=== PATIENT | female | born 1960 | race Caucasian/White ===

== ENCOUNTER → 2019-08-29 13:18 | Outpatient (BNVA) | payer MEDICARE, OTHER, SELFPAY | PROVIDERS: Family Provider Nurse Practitioner Family; PCP Nurse Practitioner Family; Visit Provider Nurse Practitioner | DX: F25.0 Schizoaffective disorder, bipolar type (principal) | CPT/HCPCS: 99213 ==

== ENCOUNTER → 2019-10-17 09:49 | Outpatient (BNVA) | payer MEDICARE, OTHER, SELFPAY | PROVIDERS: Family Provider Nurse Practitioner Family; PCP Nurse Practitioner Family; Visit Provider Internal Medicine Hematology & Oncology | DX: D50.9 Iron deficiency anemia, unspecified (principal) | CPT/HCPCS: 82728; 83540; 83550; 85025 ==

== ENCOUNTER → 2019-10-21 09:57 | Outpatient (BNVA) | payer MEDICARE, OTHER, SELFPAY | PROVIDERS: Family Provider Nurse Practitioner Family; PCP Nurse Practitioner Family; Visit Provider Nurse Practitioner Family | DX: S99.921A Unspecified injury of right foot, initial encounter (principal); W19.XXXA Unspecified fall, initial encounter; M79.671 Pain in right foot | CPT/HCPCS: 73630 ==

== ENCOUNTER 2019-10-22 09:52 | Outpatient (CLI) | payer MEDICARE, OTHER, SELFPAY ==
--- NOTE | 2019-10-23 09:57 | ONC FU_ITS ---
Dr. Armendariz follow up note Patient: Mary Hopper Unit #: [id number]: [id number] Dicatated By: Pearl Armendariz M.D.Date of Visit:Oct 22, 2019 Onc Med Follow-up/Prog Note History of Present Illness: Mrs Mary Hopper, 59-year-old female with long-standing history of iron deficiency anemia. As per patient it was December 2010 when she was told about iron deficiency anemia , at that time she was given blood transfusion and also started on oral iron but never received parenteral iron and she has been taking oral iron since then with mixed response. Since then she has received multiple transfusions approximately 6 times. And the last one was a few weeks ago when her hemoglobin dropped to 7.1 and she received 2 units of packed RBCs with that her hemoglobin gone up to 9.5 on 09/19/2017. Now being treated with parenteral iron for iron deficiency anemia and she received Injectafer 750 mg every week ???2 in September 2017 and in May 2018, with excellent response As per patient, she underwent EGD and colonoscopy in recent past and it was normal. She has history of heartburn indigestion but no history of gastric surgery, no history of abnormal bleeding. No history of jaundice, or urine or stool color changes. No history of night sweats, no weight loss,EGD/colonoscopy done on 11/22/2018 showed 10 cm hiatal hernia, normal stomach and duodenum duodenal biopsy showed no evidence of lymphocytic enteritis or villous atrophy Colonoscopy showed internal hemorrhoids, diverticulosis in sigmoid colon and in ascending colon one 12 mm polyp in the ascending colon removed, it was benign.Capsule endoscopy done on 06/27/2019 showed there were no AVMs or potential bleeding sites seen, no stigmata of recent active bleed Came for follow-up, denies any specific complaints, no nausea vomiting no fever no chills no diarrhea constipation no melena or hematochezia . No palpitation no shortness of breath on exertion. Medications: Amitriptyline HCl 3 (10 mg) Tablet Oral ac pm, Anoro Ellipta 1 (62.5-25 mcg/inh) Aerosol Powder, Breath Activated Inhalation daily, BusPIRone HCl (5 mg) Tablet Oral Take as Directed, BusPIRone HCl 1 (15 mg) Tablet Oral daily, Digoxin 1 (125 mcg) Tablet Oral daily, Omeprazole 1 (20 mg) Capsule Delayed Release Oral b.i.d., SEROquel 2 (400 mg) Tablet Oral at bedtime PRN Allergies: Penicillins and TraMADol HCl. Review of Systems: Constitutional - She has worsening fatigue, ENMT - Occasional sinus congestion/drainage. No mouth sores. No sore throat or difficulty swallowing, Hematologic/Lymphatic - No abnormal bruising or bleeding, Respiratory - No dyspnea on exertion, chest pain, or hemoptysis. Positive for cough, Pt has COPD, Cardiovascular - No anginal chest pain, palpitations, Gastrointestinal - No nausea, vomiting, diarrhea, GI bleeding, or constipation. No change in bowel habits, no heartburn or early satiety, Genitourinary (F) - No hematuria, dysuria, increased frequency, urgency, hesitancy or incontinence, Musculoskeletal - She has some generalized pain at times, Neurologic - Frequent headache and occasional dizziness. No numbness/paresthesias or other focal neurologic symptoms, Psychiatric - Positive for anxiety and depression. Vital Signs: Performed on Oct 22, 2019 11:30 Height - 67.00 in Weight - 195.2 lbs (LOW) BSA - 2.00 sq.m BMI - 30.57 (HIGH) Temperature - 97.9 F (LOW) Pulse - 76 /min Respiration - 22 /min BP - 128/89 mm(hg) O2 Sat - 97 % Pain - 10 Performance Status: 0 - Fully active, able to carry on all predisease activities without restrictions. (ECOG) Physical Examination: ENMT - No oral exudates, ulcers, masses, thrush or mucositis. Oropharynx clear. Tongue normal, Respiratory - Lungs are clear to auscultation without rhonchi or wheezing, Cardiovascular - Regular rate and rhythm of heart, Abdomen - Non-tender, non-distended, Good bowel sounds. No guarding or rebound tenderness. No pulsatile masses, Extremities - no edema. Lab/Imaging: Test performed on Oct 17, 2019 09:49 Ferritin 26 ng/mL % Iron Saturation 27.9 % Iron, Total 80 mcg/dL TIBC 286 mcg/dL WBC 5.7 10^9/L RBC 5.09 10^12/L HGB 14.7 g/dL HCT 43.5 % MCV 85.5 fl MCH 28.9 pg MCHC 33.9 g/dL RDW 15.7 % Platelet Count 351 10^9/L MPV 8.1 fL Neutrophils (Gran) 3.5 10^9/L Lymphocytes 2.1 10^9/L Monocytes 0.1 10^9/L Manual Lymphocytes 36.5 % Manual Monocytes 2.4 % Test performed on Aug 15, 2019 10:14 UIBC 187 ug/dL Neutrophil % 65.3 % Lymphocyte % 30.6 % Monocyte % 4.1 % Test performed on May 13, 2019 14:37 Eosinophils 0.1 10 3/cmm Basophils 0.0 10 3/cmm Eosinophil % 2.4 % Basophils % 0.4 % Impression: Microcytic hypochromic anemia probably due to iron deficiency most likelydue to malabsorption, as EGD and colonoscopy and capsule endoscopy which was done on 06/27/2019 , was normal In addition to that underlying myelodysplasia cannot be ruled out. Generalized weakness and fatigue probably due to anemia Status post Injectafer 750 mg IV weekly ???2 in September 2017 And in May 2018, with excellent response And on 03/12/2019 for ferritin 15, EGD/colonoscopy done on 11/14/2018 showed normal stomach and duodenum and colonoscopy showed internal hemorrhoids and diverticula in sigmoid colon and descending colon, a benign polyp was removed from ascending colon.Endoscopy Done on 06/27/2019 Showed Normal Exam and No AVMs Plan: Discussed with patient regarding her labs white blood count 5.7 hemoglobin 14.7, hematocrit 43.5 platelets 351,000 ferritin 26 iron saturation 27.9 iron 80 TIBC 286 Clinically, patient doing well with no new signs symptoms, follow-up lab shows hemoglobin normal range but iron studies on the low side of normal. Patient is a heavy smoker smoke about 1-1/2-2 packs a day, maybe causing secondary polycythemia thus hemoglobin normal range with mild iron deficiency. We'll continue to monitor her CBC and iron studies and patient was advised to quit smoking and was offered any assistance she may need. She will return to clinic in 2 months with CBC and iron studies and if there is a drop in her hemoglobin and iron stores may consider single dose of Injectafer to avoid secondary polycythemia due to heavy smoking Signed By: Pearl Armendariz M.D. <<Signature on File>>
== END 2019-10-22 09:53 | disposition home or self-care (01) ==
LOC: ONCMED 09:57
PROVIDERS: Family Provider Nurse Practitioner Family; PCP Nurse Practitioner Family; Visit Provider Internal Medicine Hematology & Oncology
DX: D50.9 Iron deficiency anemia, unspecified (principal); D75.1 Secondary polycythemia; K44.9 Diaphragmatic hernia without obstruction or gangrene; K64.8 Other hemorrhoids; K57.30 Diverticulosis of large intestine without perforation or abscess without bleeding; J44.9 Chronic obstructive pulmonary disease, unspecified; F41.8 Other specified anxiety disorders; F17.210 Nicotine dependence, cigarettes, uncomplicated; Z79.899 Other long term (current) drug therapy
CPT/HCPCS: G0463

== ENCOUNTER → 2019-11-28 07:26 | Outpatient (BNVA) | payer MEDICARE, OTHER, SELFPAY | PROVIDERS: Family Provider Nurse Practitioner Family; PCP Nurse Practitioner Family; Visit Provider Nurse Practitioner | DX: F25.0 Schizoaffective disorder, bipolar type (principal) | CPT/HCPCS: 99213 ==

== ENCOUNTER → 2019-12-17 10:00 | Outpatient (BNVA) | payer MEDICARE, OTHER, SELFPAY | PROVIDERS: Family Provider Nurse Practitioner Family; PCP Nurse Practitioner Family; Visit Provider Internal Medicine Hematology & Oncology | DX: D50.9 Iron deficiency anemia, unspecified (principal) | CPT/HCPCS: 82728; 83550; 85025 ==

== ENCOUNTER → 2020-02-26 11:36 | Outpatient (BNVA) | payer MEDICARE, OTHER, SELFPAY | PROVIDERS: Family Provider Nurse Practitioner Family; PCP Nurse Practitioner Family; Visit Provider Internal Medicine Hematology & Oncology | DX: D50.9 Iron deficiency anemia, unspecified (principal) | CPT/HCPCS: 82728; 83550; 85025 ==

== ENCOUNTER 2020-03-05 15:28 | Outpatient (CLI) | payer MEDICARE, OTHER, SELFPAY ==
--- NOTE | 2020-03-12 13:29 | ONC FU_ITS ---
Dr. Armendariz follow up note Patient: Mary Hopper Unit #: [id number]: 1960 Dicatated By: Pearl Armendariz M.D.Date of Visit:Mar 05, 2020 Onc Med Follow-up/Prog Note History of Present Illness: Mrs Mary Hopper, 60 -year-old female with long-standing history of iron deficiency anemia. As per patient it was December 2010 when she was told about iron deficiency anemia , at that time she was given blood transfusion and also started on oral iron but never received parenteral iron and she has been taking oral iron since then with mixed response. Since then she has received multiple transfusions approximately 6 times. And the last one was a few weeks ago when her hemoglobin dropped to 7.1 and she received 2 units of packed RBCs with that her hemoglobin gone up to 9.5 on 09/19/2017. Now being treated with parenteral iron for iron deficiency anemia and she received Injectafer 750 mg every week ???2 in September 2017 and in May 2018, with excellent response As per patient, she underwent EGD and colonoscopy in recent past and it was normal. She has history of heartburn indigestion but no history of gastric surgery, no history of abnormal bleeding. No history of jaundice, or urine or stool color changes. No history of night sweats, no weight loss,EGD/colonoscopy done on 11/22/2018 showed 10 cm hiatal hernia, normal stomach and duodenum duodenal biopsy showed no evidence of lymphocytic enteritis or villous atrophy Colonoscopy showed internal hemorrhoids, diverticulosis in sigmoid colon and in ascending colon one 12 mm polyp in the ascending colon removed, it was benign.Capsule endoscopy done on 06/27/2019 showed there were no AVMs or potential bleeding sites seen, no stigmata of recent active bleed evaluated via telephone Patient denies any specific complaint except generalized weakness and fatigue, dyspnea on exertion although she has underlying COPD and sometimes palpitation on exertion but no melena or hematochezia, no hemoptysis or hematemesis, no jaundice, no chest pain. Patient said she felt much better after last iron infusion at least for few months. Medications: Amitriptyline HCl 3 (10 mg) Tablet Oral ac pm, Anoro Ellipta 1 (62.5-25 mcg/inh) Aerosol Powder, Breath Activated Inhalation daily, BusPIRone HCl (5 mg) Tablet Oral Take as Directed, BusPIRone HCl 1 (15 mg) Tablet Oral daily, Digoxin 1 (125 mcg) Tablet Oral daily, Omeprazole 1 (20 mg) Capsule Delayed Release Oral b.i.d., SEROquel 2 (400 mg) Tablet Oral at bedtime PRN Allergies: Penicillins and TraMADol HCl. Review of Systems: Review of Systems is not available for this patient. Vital Signs: Vitals are not available for this patient. Performance Status: 1 - No physically strenuous activity, but ambulatory and able to carry out light or sedentary work (e.g. office work, light house work). (ECOG) Physical Examination: ENMT - Patient denies any mouth sores, denies any jaundice, Respiratory - Denies any shortness of breath or wheezing, Cardiovascular - Denies any palpitation or tachycardia at rest, Abdomen - Denies any abdominal pain or fullness, Extremities - Denies any lower extremity edema. Lab/Imaging: Test performed on Feb 26, 2020 09:46 Ferritin 14 ng/mL % Iron Saturation 9.2 % Iron, Total 27 mcg/dL TIBC 292 mcg/dL WBC 6.7 10^9/L RBC 5.04 10^12/L HGB 13.2 g/dL HCT 41.5 % MCV 82.3 fl MCH 26.2 pg MCHC 31.9 g/dL RDW 16.7 % Platelet Count 437 10^9/L MPV 7.4 fL Neutrophils (Gran) 4.5 10^9/L Lymphocytes 2.0 10^9/L Monocytes 0.2 10^9/L Manual Lymphocytes 30.3 % Manual Monocytes 3.0 % Impression: Microcytic hypochromic anemia probably due to iron deficiency most likelydue to malabsorption, as EGD and colonoscopy and capsule endoscopy which was done on 06/27/2019 , was normal In addition to that underlying myelodysplasia cannot be ruled out. Generalized weakness and fatigue probably due to anemia Status post Injectafer 750 mg IV weekly ???2 in September 2017 And in May 2018, with excellent response And on 03/12/2019 for ferritin 15, EGD/colonoscopy done on 11/14/2018 showed normal stomach and duodenum and colonoscopy showed internal hemorrhoids and diverticula in sigmoid colon and descending colon, a benign polyp was removed from ascending colon.Endoscopy Done on 06/27/2019 Showed Normal Exam and No AVMs Plan: Discussed with patient Via telephone regarding her labs white blood count 6.7 hemoglobin 13.2 crit 41.5 platelets 437,000. Iron studies shows ferritin down to 14, iron saturation 9.2 iron 27 TIBC 292 Clinically, patient is doing reasonably well now complaining of progressive generalized weakness and fatigue although her follow-up labs showed hemoglobin in the normal range but iron stores shows continuous depletion, ferritin is down to 14 compared to 30 on December 17, 2019 and iron saturation 9.2 compared to 37.5 earlier and iron is 27 compared to 108 in November 2019. As per patient when she was given iron infusion back in February 2019 at that time she felt much better for a few months and then slowly gradually start feeding weak and tired. Keeping in view, regarding her progressive weakness and lab work-up shows progressive iron deficiency and in the past symptom improvement with parenteral iron, will consider Injectafer 750 mg IV x1 now and then repeat labs CBC and iron studies in a month, hopefully, this may improve her symptoms thus quality of life.Time spent on the phone is about 4 minutes Signed By: Pearl Armendariz M.D. <<Signature on File>>
== END 2020-03-05 15:29 | disposition home or self-care (01) ==
LOC: ONCMED 15:32
PROVIDERS: PCP Nurse Practitioner Family; Visit Provider Internal Medicine Hematology & Oncology
DX: D50.9 Iron deficiency anemia, unspecified (principal)

== ENCOUNTER 2020-03-12 13:22 | Outpatient (CLI) | payer MEDICARE, OTHER, SELFPAY ==
[2020-03-12] MEDS: ferric carboxy (IVPB) 750 MG in sodium chloride 0.9% (100 ml) 100 ML 345 MG IV (13:57)
== END 2020-03-12 13:23 | disposition home or self-care (01) ==
LOC: ONCMED 13:25
PROVIDERS: PCP Nurse Practitioner Family; Visit Provider Internal Medicine Hematology & Oncology
DX: D50.9 Iron deficiency anemia, unspecified (principal)
CPT/HCPCS: 96365; J1439

== ENCOUNTER → 2020-03-27 07:47 | Outpatient (BNVA) | payer MEDICARE, OTHER, SELFPAY | PROVIDERS: PCP Nurse Practitioner Family; Visit Provider Nurse Practitioner | DX: F25.0 Schizoaffective disorder, bipolar type (principal); Z79.899 Other long term (current) drug therapy | CPT/HCPCS: 99213 ==

== ENCOUNTER → 2020-04-08 11:04 | Outpatient (BNVA) | payer MEDICARE, OTHER, SELFPAY | PROVIDERS: PCP Nurse Practitioner Family; Visit Provider Internal Medicine Hematology & Oncology | DX: D50.9 Iron deficiency anemia, unspecified (principal); Z79.899 Other long term (current) drug therapy | CPT/HCPCS: 80061; 82728; 83036; 83550; 85025 ==

== ENCOUNTER 2020-04-10 08:59 | Outpatient (CLI) | payer MEDICARE, OTHER, SELFPAY ==
--- NOTE | 2020-04-13 08:48 | ONC FU_ITS ---
Dr. Armendariz follow up note Patient: Mary Hopper Unit #: [id number]: 1960 Dicatated By: Pearl Armendariz M.D.Date of Visit:Apr 10, 2020 Onc Med Follow-up/Prog Note History of Present Illness: Mrs Mary Hopper, 60 -year-old female with long-standing history of iron deficiency anemia. As per patient it was December 2010 when she was told about iron deficiency anemia , at that time she was given blood transfusion and also started on oral iron but never received parenteral iron and she has been taking oral iron since then with mixed response. Since then she has received multiple transfusions approximately 6 times. And the last one was a few weeks ago when her hemoglobin dropped to 7.1 and she received 2 units of packed RBCs with that her hemoglobin gone up to 9.5 on 09/19/2017. Now being treated with parenteral iron for iron deficiency anemia and she received Injectafer 750 mg every week ???2 in September 2017 and in May 2018, with excellent response As per patient, she underwent EGD and colonoscopy in recent past and it was normal. She has history of heartburn indigestion but no history of gastric surgery, no history of abnormal bleeding. No history of jaundice, or urine or stool color changes. No history of night sweats, no weight loss,EGD/colonoscopy done on 11/22/2018 showed 10 cm hiatal hernia, normal stomach and duodenum duodenal biopsy showed no evidence of lymphocytic enteritis or villous atrophy Colonoscopy showed internal hemorrhoids, diverticulosis in sigmoid colon and in ascending colon one 12 mm polyp in the ascending colon removed, it was benign.Capsule endoscopy done on 06/27/2019 showed there were no AVMs or potential bleeding sites seen, no stigmata of recent active bleed Came for follow-up, denies any specific complaints, no fever chills, no nausea or vomiting, no diarrhea constipation, no melena or hematochezia, no palpitation no shortness of breath. Medications: Amitriptyline HCl 3 (10 mg) Tablet Oral ac pm, Anoro Ellipta 1 (62.5-25 mcg/inh) Aerosol Powder, Breath Activated Inhalation daily, BusPIRone HCl (5 mg) Tablet Oral Take as Directed, BusPIRone HCl 1 (15 mg) Tablet Oral daily, Digoxin 1 (125 mcg) Tablet Oral daily, Omeprazole 1 (20 mg) Capsule Delayed Release Oral b.i.d., SEROquel 2 (400 mg) Tablet Oral at bedtime PRN Allergies: Penicillins and TraMADol HCl. Review of Systems: Review of Systems is not available for this patient. Vital Signs: Performed on Apr 10, 2020 09:07 Height - 67.00 in Weight - 207.4 lbs (HIGH) BSA - 2.05 sq.m BMI - 32.48 (HIGH) Temperature - 97.8 F (LOW) Pulse - 105 /min (HIGH) Respiration - 24 /min BP - 119/90 mm(hg) O2 Sat - 96 % Pain - 0 Performance Status: 0 - Fully active, able to carry on all predisease activities without restrictions. (ECOG) Physical Examination: ENMT - No mouth sores, no thrush, no jaundice, Respiratory - Lungs are clear, Cardiovascular - Regular rate and rhythm of heart, Abdomen - Soft, bowel sounds present, Extremities - No visible edema or rash. Lab/Imaging: Test performed on Apr 08, 2020 09:30 Ferritin 211 ng/mL % Iron Saturation 17.5 % Iron, Total 38 mcg/dL TIBC 216 mcg/dL WBC 7.8 10^9/L RBC 5.68 10^12/L HGB 15.4 g/dL HCT 47.8 % MCV 84.1 fl MCH 27.0 pg MCHC 32.2 g/dL RDW 18.7 % Platelet Count 379 10^9/L MPV 7.4 fL Neutrophils (Gran) 5.0 10^9/L Lymphocytes 2.3 10^9/L Monocytes 0.6 10^9/L Manual Lymphocytes 29.2 % Manual Monocytes 7.3 % Impression: Microcytic hypochromic anemia probably due to iron deficiency most likelydue to malabsorption, as EGD and colonoscopy and capsule endoscopy which was done on 06/27/2019 , was normal In addition to that underlying myelodysplasia cannot be ruled out. Generalized weakness and fatigue probably due to anemia Status post Injectafer 750 mg IV weekly ???2 in September 2017 And in May 2018, with excellent response And on 03/12/2019 for ferritin 15, EGD/colonoscopy done on 11/14/2018 showed normal stomach and duodenum and colonoscopy showed internal hemorrhoids and diverticula in sigmoid colon and descending colon, a benign polyp was removed from ascending colon.Endoscopy Done on 06/27/2019 Showed Normal Exam and No AVMs Plan: Discussed with patient regarding her labs white blood count 7.8 hemoglobin 15.4 hematocrit 47.8 platelets 379,000, ferritin 211 compared to 14 on February 25 prior to dose of Injectafer. Iron saturation 17.5% Clinically, patient is doing well, no new signs symptoms, more energetic, tolerated dose of Injectafer given on March 12, 2020 well. Hemoglobin as well as iron stores improved. We will continue to monitor she will return to clinic in 3 months with CBC and iron studies Signed By: Pearl Armendariz M.D. <<Signature on File>>
== END 2020-04-10 09:00 | disposition home or self-care (01) ==
LOC: ONCMED 09:04
PROVIDERS: PCP Nurse Practitioner Family; Visit Provider Internal Medicine Hematology & Oncology
DX: D50.9 Iron deficiency anemia, unspecified (principal); R53.1 Weakness; R53.83 Other fatigue; Z86.010 Personal history of colon polyps; K57.30 Diverticulosis of large intestine without perforation or abscess without bleeding; K64.8 Other hemorrhoids
CPT/HCPCS: G0463

== ENCOUNTER → 2020-06-09 14:00 | Outpatient (BNVA) | payer MEDICARE, OTHER, SELFPAY | PROVIDERS: PCP Nurse Practitioner Family; Visit Provider Nurse Practitioner Family | DX: Z11.59 Encounter for screening for other viral diseases (principal) | CPT/HCPCS: 87635 ==

== ENCOUNTER → 2020-07-08 08:30 | Outpatient (BNVA) | payer MEDICARE, OTHER, SELFPAY | PROVIDERS: PCP Nurse Practitioner Family; Visit Provider Nurse Practitioner Family | DX: D50.9 Iron deficiency anemia, unspecified (principal) | CPT/HCPCS: 82728; 83550; 85025 ==

== ENCOUNTER → 2020-08-03 08:38 | Outpatient (BNVA) | payer MEDICARE, OTHER, SELFPAY | PROVIDERS: PCP Nurse Practitioner Family; Visit Provider Nurse Practitioner | DX: F25.0 Schizoaffective disorder, bipolar type (principal); D50.9 Iron deficiency anemia, unspecified | CPT/HCPCS: 83540; 99213 ==

== ENCOUNTER 2020-08-05 06:52 | Outpatient (CLI) | payer MEDICARE, OTHER, SELFPAY ==
--- NOTE | 2020-08-05 10:39 | ONC FU_ITS ---
Dr. Armendariz follow up note Patient: Mary Hopper Unit #: [id number]: 1960 Dicatated By: Pearl Armendariz M.D.Date of Visit:Aug 05, 2020 Onc Med Follow-up/Prog Note History of Present Illness: Mrs Mary Hopper, 60 -year-old female with long-standing history of iron deficiency anemia. As per patient it was December 2010 when she was told about iron deficiency anemia , at that time she was given blood transfusion and also started on oral iron but never received parenteral iron and she has been taking oral iron since then with mixed response. Since then she has received multiple transfusions approximately 6 times. And the last one was a few weeks ago when her hemoglobin dropped to 7.1 and she received 2 units of packed RBCs with that her hemoglobin gone up to 9.5 on 09/19/2017. s/p parenteral iron for iron deficiency anemia and she received Injectafer 750 mg every week ???2 in September 2017 and in May 2018, with excellent response And again in February 2020, she was given Injectafer 750 mg x 1 As per patient, she underwent EGD and colonoscopy in recent past and it was normal. She has history of heartburn indigestion but no history of gastric surgery, no history of abnormal bleeding. No history of jaundice, or urine or stool color changes. No history of night sweats, no weight loss,EGD/colonoscopy done on 11/22/2018 showed 10 cm hiatal hernia, normal stomach and duodenum duodenal biopsy showed no evidence of lymphocytic enteritis or villous atrophy Colonoscopy showed internal hemorrhoids, diverticulosis in sigmoid colon and in ascending colon one 12 mm polyp in the ascending colon removed, it was benign.Capsule endoscopy done on 06/27/2019 showed there were no AVMs or potential bleeding sites seen, no stigmata of recent active bleed Came for follow-up, denies any specific complaints, no fever chills, no nausea or vomiting, no diarrhea or constipation, no melena or hematochezia, no jaundice, no hemoptysis hematemesis, no shortness of breath or palpitation Medications: Amitriptyline HCl 3 (10 mg) Tablet Oral ac pm, Anoro Ellipta 1 (62.5-25 mcg/inh) Aerosol Powder, Breath Activated Inhalation daily, BusPIRone HCl (5 mg) Tablet Oral Take as Directed, BusPIRone HCl 1 (15 mg) Tablet Oral daily, Digoxin 1 (125 mcg) Tablet Oral daily, Omeprazole 1 (20 mg) Capsule Delayed Release Oral b.i.d., SEROquel 2 (400 mg) Tablet Oral at bedtime PRN Allergies: Penicillins and TraMADol HCl. Review of Systems: Review of Systems is not available for this patient. Vital Signs: Performed on Aug 05, 2020 09:55 Height - 67.00 in Weight - 207.8 lbs (HIGH) BSA - 2.06 sq.m BMI - 32.55 (HIGH) Temperature - 98.6 F Pulse - 95 /min Respiration - 24 /min BP - 123/82 mm(hg) O2 Sat - 94 % (LOW) Pain - 0 Performance Status: 0 - Fully active, able to carry on all predisease activities without restrictions. (ECOG) Physical Examination: ENMT - No mouth sores, no thrush, no jaundice, Respiratory - Lungs are clear to auscultation, Cardiovascular - Regular rate and rhythm of heart, Abdomen - Soft, bowel sounds present, Extremities - No visible edema. Lab/Imaging: Test performed on Jul 13, 2020 11:08 Ferritin 55 ng/mL Test performed on Jul 13, 2020 11:06 % Iron Saturation 15.6 % Iron, Total 41 mcg/dL TIBC 262 mcg/dL WBC 6.2 10^9/L RBC 5.02 10^12/L HGB 14.3 g/dL HCT 43.5 % MCV 86.6 fl MCH 28.5 pg MCHC 32.9 g/dL RDW 14.9 % Platelet Count 388 10^9/L Neutrophils (Gran) 4.0 10^9/L Lymphocytes 1.7 10^9/L Monocytes 0.5 10^9/L Test performed on Apr 08, 2020 09:30 MPV 7.4 fL Manual Lymphocytes 29.2 % Manual Monocytes 7.3 % Impression: Microcytic hypochromic anemia probably due to iron deficiency most likelydue to malabsorption, as EGD and colonoscopy and capsule endoscopy which was done on 06/27/2019 , was normal In addition to that underlying myelodysplasia cannot be ruled out. Generalized weakness and fatigue probably due to anemia Status post Injectafer 750 mg IV weekly ???2 in September 2017 And in May 2018, with excellent response And on 03/12/2019 for ferritin 15, EGD/colonoscopy done on 11/14/2018 showed normal stomach and duodenum and colonoscopy showed internal hemorrhoids and diverticula in sigmoid colon and descending colon, a benign polyp was removed from ascending colon.Endoscopy Done on 06/27/2019 Showed Normal Exam and No AVMs Plan: Discussed with patient regarding her white blood count 6.2 hemoglobin 14.3 hematocrit 43.5 platelets 388,000 MCV 86.6 ferritin 55 iron saturation 15.6 iron 41 TIBC 262 compared to ferritin 211 on April 08, 2020 after Injectafer 750 mg IV x1 Clinically, patient is doing well with no new signs symptoms or follow-up labs shows hemoglobin in normal range and iron stores on the low side of normal range, it shows drop in her ferritin from 211 down to 55 now. But patient denies any evidence of gross bleeding. We will continue to monitor and she will return to clinic in 3 months with CBC and iron studies. Patient prefer telemedicine visit. Signed By: Pearl Armendariz M.D. <<Signature on File>>
== END 2020-08-05 06:53 | disposition home or self-care (01) ==
PROVIDERS: PCP Family Medicine; Visit Provider Internal Medicine Hematology & Oncology
DX: D50.9 Iron deficiency anemia, unspecified (principal); R53.1 Weakness; R53.83 Other fatigue
CPT/HCPCS: G0463

== ENCOUNTER → 2020-10-30 09:16 | Outpatient (BNVA) | payer MEDICARE, OTHER, SELFPAY | PROVIDERS: PCP Family Medicine; Visit Provider Internal Medicine Hematology & Oncology | DX: D50.9 Iron deficiency anemia, unspecified (principal) | CPT/HCPCS: 82728; 83550; 85025 ==

== ENCOUNTER → 2020-11-20 07:49 | Outpatient (BNVA) | payer MEDICARE, OTHER, SELFPAY | PROVIDERS: PCP Family Medicine; Visit Provider Nurse Practitioner | DX: F25.0 Schizoaffective disorder, bipolar type (principal) | CPT/HCPCS: 99214 ==

== ENCOUNTER → 2020-12-11 08:11 | Outpatient (BNVA) | payer MEDICARE, OTHER, SELFPAY | PROVIDERS: PCP Family Medicine; Visit Provider Nurse Practitioner | DX: F25.0 Schizoaffective disorder, bipolar type (principal) | CPT/HCPCS: 99214 ==

== ENCOUNTER → 2020-12-15 15:08 | Outpatient (BNVA) | payer MEDICARE, OTHER, SELFPAY | PROVIDERS: PCP Family Medicine; Visit Provider Family Medicine | DX: E11.65 Type 2 diabetes mellitus with hyperglycemia (principal); K21.9 Gastro-esophageal reflux disease without esophagitis; I10 Essential (primary) hypertension | CPT/HCPCS: 83036 ==

== ENCOUNTER → 2021-02-08 10:10 | Outpatient (BNVA) | payer MEDICARE, OTHER, SELFPAY | PROVIDERS: PCP Family Medicine; Visit Provider Nurse Practitioner Family | DX: M79.642 Pain in left hand (principal) | CPT/HCPCS: 73130 ==

== ENCOUNTER → 2021-02-12 08:47 | Outpatient (BNVA) | payer MEDICARE, SELFPAY | PROVIDERS: PCP Family Medicine; Visit Provider Internal Medicine Hematology & Oncology | DX: D50.9 Iron deficiency anemia, unspecified (principal) | CPT/HCPCS: 36415; 82728; 83550; 85025 ==

== ENCOUNTER 2021-02-15 07:52 | Outpatient (CLI) | payer MEDICARE, SELFPAY ==
--- NOTE | 2021-02-15 08:44 | ONC FU_ITS ---
Dr. Armendariz follow up note Patient: Mary Hopper Unit #: [id number]: 1960 Dicatated By: Pearl Armendariz M.D.Date of Visit:Feb 15, 2021 Onc Med Follow-up/Prog Note History of Present Illness: Mrs Mary Hopper, 60 -year-old female with long-standing history of iron deficiency anemia. As per patient it was December 2010 when she was told about iron deficiency anemia , at that time she was given blood transfusion and also started on oral iron but never received parenteral iron and she has been taking oral iron since then with mixed response. Since then she has received multiple transfusions approximately 6 times. And the last one was a few weeks ago when her hemoglobin dropped to 7.1 and she received 2 units of packed RBCs with that her hemoglobin gone up to 9.5 on 09/19/2017. s/p parenteral iron for iron deficiency anemia and she received Injectafer 750 mg every week ???2 in September 2017 and in May 2018, with excellent response And again in February 2020, she was given Injectafer 750 mg x 1 As per patient, she underwent EGD and colonoscopy in recent past and it was normal. She has history of heartburn indigestion but no history of gastric surgery, no history of abnormal bleeding. No history of jaundice, or urine or stool color changes. No history of night sweats, no weight loss,EGD/colonoscopy done on 11/22/2018 showed 10 cm hiatal hernia, normal stomach and duodenum duodenal biopsy showed no evidence of lymphocytic enteritis or villous atrophy Colonoscopy showed internal hemorrhoids, diverticulosis in sigmoid colon and in ascending colon one 12 mm polyp in the ascending colon removed, it was benign.Capsule endoscopy done on 06/27/2019 showed there were no AVMs or potential bleeding sites seen, no stigmata of recent active bleed Came for follow-up, complaining of generalized weakness and fatigue but no melena or hematochezia, no nausea or vomiting, no diarrhea or constipation, no jaundice, no chest pain or palpitation, as per patient she recently have stool checked for occult bleeding and it came back negative Medications: Amitriptyline HCl 3 (10 mg) Tablet Oral ac pm, Anoro Ellipta 1 (62.5-25 mcg/inh) Aerosol Powder, Breath Activated Inhalation daily, BusPIRone HCl (5 mg) Tablet Oral Take as Directed, BusPIRone HCl 1 (15 mg) Tablet Oral daily, Digoxin 1 (125 mcg) Tablet Oral daily, Omeprazole 1 (20 mg) Capsule Delayed Release Oral b.i.d., SEROquel 2 (400 mg) Tablet Oral at bedtime PRN Allergies: Penicillins and TraMADol HCl. Review of Systems: Review of Systems is not available for this patient. Vital Signs: Performed on Feb 15, 2021 08:16 Height - 67.00 in Weight - 210.2 lbs (HIGH) BSA - 2.07 sq.m BMI - 32.92 (HIGH) Temperature - 98.2 F (LOW) Pulse - 110 /min (HIGH) Respiration - 18 /min BP - 110/70 mm(hg) O2 Sat - 94 % (LOW) Pain - 0 Fatigue - 9 Performance Status: 0 - Fully active, able to carry on all predisease activities without restrictions. (ECOG) Physical Examination: ENMT - No mouth sores, no thrush, no jaundice, Respiratory - Lungs are clear to auscultation, Cardiovascular - Regular rate and rhythm of heart, Abdomen - Soft, bowel sounds present, Extremities - No visible edema or rash. Lab/Imaging: Test performed on Feb 12, 2021 08:47 Ferritin 16 ng/mL Iron 45 mcg/dL Iron Binding Capacity (TIBC) 276 mcg/dL % Iron Saturation 16.3 % UIBC 231 mcg/dL WBC 7.8 10^3/uL RBC 5.33 10^6/uL HGB 13.7 g/dL HCT 43.0 % MCV 80.7 fl MCH 25.7 pg MCHC 31.8 g/dL RDW 15.8 % Platelet Count 404 10^3/uL MPV 7.5 fl Neutrophils 5.2 10^3/uL Lymphocytes 2.3 10^3/uL Monocytes 0.4 10^3/uL Neutrophil % 66.2 % Lymphocyte % 29.0 % Monocyte % 4.8 % Impression: Microcytic hypochromic anemia probably due to iron deficiency most likelydue to malabsorption, as EGD and colonoscopy and capsule endoscopy which was done on 06/27/2019 , was normal In addition to that underlying myelodysplasia cannot be ruled out. Generalized weakness and fatigue probably due to anemia Status post Injectafer 750 mg IV weekly ???2 in September 2017 And in May 2018, with excellent response And on 03/12/2019 for ferritin 15,And in February 2020 EGD/colonoscopy done on 11/14/2018 showed normal stomach and duodenum and colonoscopy showed internal hemorrhoids and diverticula in sigmoid colon and descending colon, a benign polyp was removed from ascending colon.Endoscopy Done on 06/27/2019 Showed Normal Exam and No AVMs Plan: Discussed with patient regarding her labs white blood count 7.8 hemoglobin 13.7 g compared to 14.3 g previously hematocrit 43 platelets 404,000 iron studies shows ferritin 16 compared to 55 previously and 211 prior to that, iron saturation 16.3% iron 45 TIBC 276 Clinically, patient is doing well with no new signs symptom except progressive generalized weakness and fatigue as per patient last time when she received dose of iron infusion she felt much better for many months and then again start feeling generalized weakness and fatigue and her CBC shows progressive drop in her hemoglobin although still within normal range and repeat iron studies shows progressive drop in her ferritin and now 16 compared to 211 in March 2020. Because of her progressive symptoms and feeling better after dose of Injectafer previously, we will consider Injectafer 750 mg IV x1 and then continue to monitor her CBC and iron stores. Signed By: Pearl Armendariz M.D. <<Signature on File>>
== END 2021-02-15 07:53 | disposition home or self-care (01) ==
LOC: ONCMED 07:54
PROVIDERS: PCP Family Medicine; Visit Provider Internal Medicine Hematology & Oncology
DX: D50.9 Iron deficiency anemia, unspecified (principal); K90.9 Intestinal malabsorption, unspecified; R53.1 Weakness; R53.82 Chronic fatigue, unspecified; Z79.899 Other long term (current) drug therapy
CPT/HCPCS: 99214

== ENCOUNTER → 2021-02-23 16:51 | Outpatient (BNVA) | payer MEDICARE, SELFPAY | PROVIDERS: PCP Family Medicine; Visit Provider Nurse Practitioner Family | DX: R05 Cough (principal); Z20.822 Contact with and (suspected) exposure to COVID-19 | CPT/HCPCS: 87635 ==

== ENCOUNTER 2021-04-02 08:29 | Outpatient (CLI) | payer MEDICARE, OTHER, SELFPAY ==
[2021-04-02] MEDS: ferric carboxy (IVPB) 750 MG in sodium chloride 0.9% (100 ml) 100 ML 460 MG IV (09:22)
== END 2021-04-02 08:30 | disposition home or self-care (01) ==
PROVIDERS: PCP Nurse Practitioner Family; Visit Provider Internal Medicine Hematology & Oncology
DX: D50.9 Iron deficiency anemia, unspecified (principal)
CPT/HCPCS: 96365; J1439

== ENCOUNTER 2021-04-09 06:02 | Outpatient (CLI) | payer MEDICARE, OTHER, SELFPAY ==
[2021-04-09] MEDS: ferric carboxy (IVPB) 750 MG in sodium chloride 0.9% (100 ml) 100 ML 345 MG IV (09:42)
== END 2021-04-09 06:03 | disposition home or self-care (01) ==
LOC: ONCMED 06:05
PROVIDERS: PCP Nurse Practitioner Family; Visit Provider Internal Medicine Hematology & Oncology
DX: D50.9 Iron deficiency anemia, unspecified (principal); Z79.899 Other long term (current) drug therapy
CPT/HCPCS: 96365; J1439

== ENCOUNTER 2021-05-13 12:21 | Outpatient (CLI) | payer MEDICARE, SELFPAY ==
[2021-05-13 13:39] LABS: Basophils % 0.4 %; Eosinophils # 0.2 10^3/uL (0.0-0.8); Eosinophils % 2.6 %; Hematocrit 37.8 % (37.0-47.0); Hemoglobin 12.2 g/dL (11.5-15.3); Lymphocytes # 2.2 10^3/uL (0.8-4.8); Lymphocytes % 30.2 %; Mean Corpuscular HGB Conc 32.3 g/dL (30.0-36.0); Mean Corpuscular Hemoglobin 27.5 pg (28.0-34.0); Mean Corpuscular Volume 85.3 fl (81-99); Mean Platelet Volume 10.1 fL (7.4-10.4); Monocytes # 0.4 10^3/uL (0.2-0.9); Monocytes % 5.9 %; Neutrophils % 60.6 %; Nucleated Red Blood Cells % 0 %; Platelet Count 357 10^3/cmm (130-400); Red Blood Count 4.43 10^6/uL (4.1-5.3); Red Cell Distribution Width 19.3 % (12.1-15.1); White Blood Count 7.3 10^3/uL (4.0-10.0)
[2021-05-13 13:48] LABS: Ferritin 444 ng/mL (15-150); Iron 73 ug/dL (37-145); Total Iron Binding Capacity 208 mcg/dl; Unsaturated Iron Binding 135 ug/dL (112-347)
--- NOTE | 2021-05-13 14:56 | ONC FU_ITS ---
Dr. Armendariz follow up note Patient: Mary Hopper Unit #: [id number]: 1960 Dicatated By: Pearl Armendariz M.D.Date of Visit:May 13, 2021 Onc Med Follow-up/Prog Note History of Present Illness: Mrs Mary Hopper, 60 -year-old female with long-standing history of iron deficiency anemia. As per patient it was December 2010 when she was told about iron deficiency anemia , at that time she was given blood transfusion and also started on oral iron but never received parenteral iron and she has been taking oral iron since then with mixed response. Since then she has received multiple transfusions approximately 6 times. And the last one was a few weeks ago when her hemoglobin dropped to 7.1 and she received 2 units of packed RBCs with that her hemoglobin gone up to 9.5 on 09/19/2017. s/p parenteral iron for iron deficiency anemia and she received Injectafer 750 mg every week ???2 in September 2017 and in May 2018, with excellent response And again in February 2020, she was given Injectafer 750 mg x 1 As per patient, she underwent EGD and colonoscopy in recent past and it was normal. She has history of heartburn indigestion but no history of gastric surgery, no history of abnormal bleeding. No history of jaundice, or urine or stool color changes. No history of night sweats, no weight loss,EGD/colonoscopy done on 11/22/2018 showed 10 cm hiatal hernia, normal stomach and duodenum duodenal biopsy showed no evidence of lymphocytic enteritis or villous atrophy Colonoscopy showed internal hemorrhoids, diverticulosis in sigmoid colon and in ascending colon one 12 mm polyp in the ascending colon removed, it was benign.Capsule endoscopy done on 06/27/2019 showed there were no AVMs or potential bleeding sites seen, no stigmata of recent active bleed Came for follow-up, denies any specific complaints, no fever chills, no nausea or vomiting, no diarrhea or constipation, no melena or hematochezia, no hemoptysis or hematemesis, as per patient since her last visit, she quit smoking and now she is on home oxygen, feeling better. And also had episode of self-limiting dark-colored stools for 1 week but denies any fresh blood per rectum. Denies any jaundice. Tolerated Injectafer infusion well. Feeling better overall. Medications: Amitriptyline HCl 3 (10 mg) Tablet Oral ac pm, Anoro Ellipta 1 (62.5-25 mcg/inh) Aerosol Powder, Breath Activated Inhalation daily, BusPIRone HCl (5 mg) Tablet Oral Take as Directed, BusPIRone HCl 1 (15 mg) Tablet Oral daily, Digoxin 1 (125 mcg) Tablet Oral daily, Omeprazole 1 (20 mg) Capsule Delayed Release Oral b.i.d., SEROquel 2 (400 mg) Tablet Oral at bedtime PRN Allergies: Penicillins and TraMADol HCl. Review of Systems: Review of Systems is not available for this patient. Vital Signs: Performed on May 13, 2021 14:21 Height - 67.00 in Temperature - 97.8 F (LOW) Pulse - 100 /min Respiration - 18 /min BP - 140/81 mm(hg) O2 Sat - 98 % Pain - 0 Performance Status: 0 - Fully active, able to carry on all predisease activities without restrictions. (ECOG) Physical Examination: ENMT - No mouth sores, no thrush, no jaundice, Respiratory - Poor air entry otherwise clear, Cardiovascular - Regular rate and rhythm of heart, Abdomen - Soft, bowel sounds present, Extremities - No visible edema. Lab/Imaging: Test performed on Feb 12, 2021 08:47 Ferritin 16 ng/mL Iron 45 mcg/dL Iron Binding Capacity (TIBC) 276 mcg/dL % Iron Saturation 16.3 % UIBC 231 mcg/dL WBC 7.8 10^3/uL RBC 5.33 10^6/uL HGB 13.7 g/dL HCT 43.0 % MCV 80.7 fl MCH 25.7 pg MCHC 31.8 g/dL RDW 15.8 % Platelet Count 404 10^3/uL MPV 7.5 fl Neutrophils 5.2 10^3/uL Lymphocytes 2.3 10^3/uL Monocytes 0.4 10^3/uL Neutrophil % 66.2 % Lymphocyte % 29.0 % Monocyte % 4.8 % Impression: Microcytic hypochromic anemia probably due to iron deficiency most likelydue to malabsorption, as EGD and colonoscopy and capsule endoscopy which was done on 06/27/2019 , was normal In addition to that underlying myelodysplasia cannot be ruled out. Generalized weakness and fatigue probably due to anemia Status post Injectafer 750 mg IV weekly ???2 in September 2017 And in May 2018, with excellent response And on 03/12/2019 for ferritin 15,And in February 2020And on 04/02/2021 and 04/09/2021 EGD/colonoscopy done on 11/14/2018 showed normal stomach and duodenum and colonoscopy showed internal hemorrhoids and diverticula in sigmoid colon and descending colon, a benign polyp was removed from ascending colon.Endoscopy Done on 06/27/2019 Showed Normal Exam and No AVMs COPD on no home oxygen Plan: Discussed with patient regarding her labs white blood count 7.3 hemoglobin 12.2 hematocrit 37.8 platelets 357,000 iron saturation 35 ferritin 444 compared to 16 prior to Injectafer infusion iron 73 TIBC 208 Clinically, patient doing well with no obvious gross bleeding but as per patient she had a self-limiting episode of darker stools which lasted for a week and then improved on its own. Her follow-up CBC shows hemoglobin normal range and improvement in iron stores normal normal range after Injectafer infusion given in March 2021 We will continue to monitor she will return to clinic in 3 months with CBC and iron studies Patient also has progressive COPD for which she is on home oxygen and patient quit smoking recently and she was congratulated and encouraged Signed By: Pearl Armendariz M.D. <<Signature on File>>
== END 2021-05-13 12:22 | disposition home or self-care (01) ==
LOC: ONCMED 12:23
PROVIDERS: PCP Nurse Practitioner Family; Visit Provider Internal Medicine Hematology & Oncology
DX: D50.9 Iron deficiency anemia, unspecified (principal); J44.9 Chronic obstructive pulmonary disease, unspecified; R53.1 Weakness; R53.83 Other fatigue; Z87.891 Personal history of nicotine dependence; Z79.899 Other long term (current) drug therapy
CPT/HCPCS: 36415; 82728; 83540; 83550; 85025; 99214

== ENCOUNTER → 2021-08-04 09:03 | Outpatient (BNVA) | payer MEDICARE, OTHER, SELFPAY | PROVIDERS: PCP Family Medicine; Visit Provider Nurse Practitioner Family | DX: E78.49 Other hyperlipidemia (principal); E11.9 Type 2 diabetes mellitus without complications; D50.9 Iron deficiency anemia, unspecified | CPT/HCPCS: 80053; 80061; 83036; 84443; 85025 ==

== ENCOUNTER 2021-09-16 11:35 | Outpatient (CLI) | payer MEDICARE, OTHER, SELFPAY ==
[2021-09-16 12:31] LABS: Basophils % 0.3 %; Eosinophils # 0.2 10^3/uL (0.0-0.8); Eosinophils % 1.8 %; Hematocrit 42.7 % (37.0-47.0); Hemoglobin 13.5 g/dL (11.5-15.3); Lymphocytes # 2.4 10^3/uL (0.8-4.8); Mean Corpuscular HGB Conc 31.6 g/dL (30.0-36.0); Mean Corpuscular Hemoglobin 28.7 pg (28.0-34.0); Mean Corpuscular Volume 90.9 fl (81-99); Mean Platelet Volume 10.2 fL (7.4-10.4); Monocytes # 0.5 10^3/uL (0.2-0.9); Monocytes % 5.6 %; Neutrophils # 5.88 10^3/uL (1.8-7.7); Nucleated Red Blood Cells % 0 %; Platelet Count 379 10^3/cmm (130-400); Red Cell Distribution Width 13.5 % (12.1-15.1); White Blood Count 9.1 10^3/uL (4.0-10.0)
[2021-09-16 13:12] LABS: Ferritin 214 ng/mL (15-150); Iron 35 ug/dL (37-145); Percent Saturation 13.4 % (20-50); Total Iron Binding Capacity 260 mcg/dl; Unsaturated Iron Binding 225 ug/dL (112-347)
--- NOTE | 2021-09-16 14:01 | ONC FU_ITS ---
Dr. Armendariz follow up note Patient: Mary Hopper Unit #: [id number]: 1960 Dicatated By: Pearl Armendariz M.D.Date of Visit:Sep 16, 2021 Onc Med Follow-up/Prog Note History of Present Illness: Mrs Mary Hopper, 61 -year-old female with long-standing history of iron deficiency anemia. As per patient it was December 2010 when she was told about iron deficiency anemia , at that time she was given blood transfusion and also started on oral iron but never received parenteral iron and she has been taking oral iron since then with mixed response. Since then she has received multiple transfusions approximately 6 times. And the last one was a few weeks ago when her hemoglobin dropped to 7.1 and she received 2 units of packed RBCs with that her hemoglobin gone up to 9.5 on 09/19/2017. s/p parenteral iron for iron deficiency anemia and she received Injectafer 750 mg every week ???2 in September 2017 and in May 2018, with excellent response And again in February 2020, she was given Injectafer 750 mg x 1 As per patient, she underwent EGD and colonoscopy in recent past and it was normal. She has history of heartburn indigestion but no history of gastric surgery, no history of abnormal bleeding. No history of jaundice, or urine or stool color changes. No history of night sweats, no weight loss,EGD/colonoscopy done on 11/22/2018 showed 10 cm hiatal hernia, normal stomach and duodenum duodenal biopsy showed no evidence of lymphocytic enteritis or villous atrophy Colonoscopy showed internal hemorrhoids, diverticulosis in sigmoid colon and in ascending colon one 12 mm polyp in the ascending colon removed, it was benign.Capsule endoscopy done on 06/27/2019 showed there were no AVMs or potential bleeding sites seen, no stigmata of recent active bleed Came for follow-up, denies any specific complaints except weight gain since she quit smoking. No fever chills, no nausea or vomiting, no diarrhea constipation, no melena or hematochezia, no hemoptysis or hematemesis, no jaundice, no shortness of breath or palpitation at rest, patient on home oxygen. Medications: Amitriptyline HCl 3 (10 mg) Tablet Oral ac pm, Anoro Ellipta 1 (62.5-25 mcg/inh) Aerosol Powder, Breath Activated Inhalation daily, BusPIRone HCl (5 mg) Tablet Oral Take as Directed, BusPIRone HCl 1 (15 mg) Tablet Oral daily, Digoxin 1 (125 mcg) Tablet Oral daily, Omeprazole 1 (20 mg) Capsule Delayed Release Oral b.i.d., SEROquel 2 (400 mg) Tablet Oral at bedtime PRN Allergies: Penicillins and TraMADol HCl. Review of Systems: Review of Systems is not available for this patient. Vital Signs: Vitals are not available for this patient. Performance Status: 0 - Fully active, able to carry on all predisease activities without restrictions. (ECOG) Physical Examination: ENMT - No mouth sores, no thrush, no jaundice, Respiratory - Poor air entry otherwise clear, Cardiovascular - Regular rate and rhythm of heart, Abdomen - Soft, bowel sounds present, Extremities - No visible edema. Lab/Imaging: Most recent lab results are not available for this patient. Impression: Microcytic hypochromic anemia probably due to iron deficiency most likelydue to malabsorption, as EGD and colonoscopy and capsule endoscopy which was done on 06/27/2019 , was normal In addition to that underlying myelodysplasia cannot be ruled out. Generalized weakness and fatigue probably due to anemia Status post Injectafer 750 mg IV weekly ???2 in September 2017 And in May 2018, with excellent response And on 03/12/2019 for ferritin 15,And in February 2020And on 04/02/2021 and 04/09/2021 EGD/colonoscopy done on 11/14/2018 showed normal stomach and duodenum and colonoscopy showed internal hemorrhoids and diverticula in sigmoid colon and descending colon, a benign polyp was removed from ascending colon.Endoscopy Done on 06/27/2019 Showed Normal Exam and No AVMs COPD on no home oxygen Plan: Discussed with patient regarding her labs white blood count 9.1 hemoglobin 13.5 g compared to 12.2 previously hematocrit 42.7 platelets 379,000 iron studies shows iron saturation 13.4% ferritin 214 iron 35 TIBC 260 Clinically, patient doing well with no new signs symptoms her follow-up labs shows hemoglobin is in normal range rather improving and iron stores adequate although decreasing, with no obvious sign of bleeding. Will continue to monitor she will return to clinic in 2 months with CBC and iron studies Signed By: Pearl Armendariz M.D. <<Signature on File>>
== END 2021-09-16 11:36 | disposition home or self-care (01) ==
LOC: ONCMED 11:39
PROVIDERS: PCP Family Medicine; Visit Provider Internal Medicine Hematology & Oncology
DX: D50.9 Iron deficiency anemia, unspecified (principal); J44.9 Chronic obstructive pulmonary disease, unspecified; Z99.81 Dependence on supplemental oxygen
CPT/HCPCS: 36415; 82728; 83540; 83550; 85025; 99214

== ENCOUNTER → 2021-09-17 00:01 | Outpatient (BNVA) | payer MEDICARE, OTHER, SELFPAY | PROVIDERS: PCP Family Medicine; Visit Provider Internal Medicine Critical Care Medicine | DX: J44.9 Chronic obstructive pulmonary disease, unspecified (principal) | CPT/HCPCS: 87635 ==

== ENCOUNTER 2021-09-23 09:18 | Outpatient (CLI) | payer MEDICARE, OTHER, SELFPAY ==
--- NOTE | 2021-09-23 09:45 | CT_ITS ---
WS: [id number] LDCT LUNG CANCER SCREENING TECHNIQUE: Noncontrast CT of the chest with coronal and sagittal reformatted images. CLINICAL INFORMATION: Z87.891 - Personal history of nicotine dependence COMPARISON: Radiograph July 02, 2010 DLP: 71.71 mGy.cm DIvol: Mean CTDIvol: 1.60 (mGy) All CT scans at [facility] use at least one of these dose optimization techniques: automat ed exposure control; mA and/or kV adjustment per patient size (includes targeted exams where dose is matched to clinical indication); or iterative reconstruction. FINDINGS: Large esophageal hiatal hernia with partial intrathoracic stomach. This extends into the midline and right mediastinum. No acute pulmonary infiltrates. No mediastinal or hilar lymphadenopathy. Mild aort ic calcification. No axillary lymphadenopathy. Adrenal glands are normal. Calcified granulomas right upper lobe. No suspicious pulmonary parenchymal opacities. CT/CT lung screening [id number] IMPRESSION: LUNG-RADS: 2-Benign Appearance or Behavior FOLLOW UP: 12 Month: Continue annual screening with LDCT
--- NOTE | 2021-09-23 10:32 | PFTS_ITS ---
Date of Study:09/23/21 Date of Dictation: 09/28/21 MECHANICS: Postbronchodilator forced vital capacity (FVC) is reduced. Postbronchodilator forced expiratory volume in one second (FEV1) is moderately reduced. FEV1/FVC is normal. There is significant response to bronchodilators FLOW VOLUME LOOP: Sloping of expiratory limb corrected with bronchodilator suggestive of reversible defect. LUNG VOLUMES: Total lung capacity (TLC) is normal. Residual volume (RV) is increased suggestive of air trapping DIFFUSING CAPACITY FOR CARBON MONOXIDE: Normal . INTERPRETATION: The pulmonary function tests are mixed pattern of restriction and obstruction. Spirometry consistent with moderate obstruction. There is significant bronchodilator response. Lung volumes suggestive of moderate air trapping. Gas transfer is normal. Clinical correlation recommended. [facility]
== END 2021-09-23 09:19 | disposition home or self-care (01) ==
LOC: RAD 09:28
PROVIDERS: PCP Family Medicine; Visit Provider Internal Medicine Critical Care Medicine
DX: Z12.2 Encounter for screening for malignant neoplasm of respiratory organs (principal); Z87.891 Personal history of nicotine dependence; J44.9 Chronic obstructive pulmonary disease, unspecified; K44.9 Diaphragmatic hernia without obstruction or gangrene; I70.0 Atherosclerosis of aorta
CPT/HCPCS: 71271; 94060; 94726; 94729; J7611

== ENCOUNTER → 2022-04-20 10:16 | Outpatient (BNVA) | payer MEDICARE, OTHER, SELFPAY | PROVIDERS: PCP Family Medicine; Visit Provider Nurse Practitioner Family | DX: E78.49 Other hyperlipidemia (principal); E11.9 Type 2 diabetes mellitus without complications; Z79.899 Other long term (current) drug therapy; Z51.81 Encounter for therapeutic drug level monitoring | CPT/HCPCS: 80053; 80061; 80162; 83036; 84443 ==

== ENCOUNTER → 2022-08-08 13:46 | Outpatient (BNVA) | payer MEDICARE, OTHER, SELFPAY | PROVIDERS: PCP Family Medicine; Visit Provider Nurse Practitioner Family | DX: R05.9 Cough, unspecified (principal) | CPT/HCPCS: 87400 ==

== ENCOUNTER → 2022-09-01 15:02 | Outpatient (BNVA) | payer MEDICARE, OTHER, SELFPAY | PROVIDERS: PCP Family Medicine; Visit Provider Nurse Practitioner Family | DX: S61.459A Open bite of unspecified hand, initial encounter (principal); W55.01XA Bitten by cat, initial encounter | CPT/HCPCS: 73130 ==

== ENCOUNTER 2022-10-06 10:14 | Oncology outpatient (recurring) (ONCR) | payer MEDICARE, OTHER, SELFPAY ==
[2022-10-06 10:48] LABS: Basophils % 0.5 %; Eosinophils # 0.3 10^3/uL (0.0-0.8); Eosinophils % 3.4 %; Hematocrit 44.6 % (37.0-47.0); Hemoglobin 13.9 g/dL (11.5-15.3); Lymphocytes # 2.6 10^3/uL (0.8-4.8); Lymphocytes % 29.8 %; Mean Corpuscular HGB Conc 31.2 g/dL (30.0-36.0); Mean Corpuscular Hemoglobin 27.1 pg (28.0-34.0); Mean Corpuscular Volume 86.9 fl (81-99); Mean Platelet Volume 10.2 fL (7.4-10.4); Monocytes # 0.5 10^3/uL (0.2-0.9); Monocytes % 5.2 %; Neutrophils # 5.39 10^3/uL (1.8-7.7); Neutrophils % 60.9 %; Nucleated Red Blood Cells % 0 %; Platelet Count 386 10^3/cmm (130-400); Red Blood Count 5.13 10^6/uL (4.1-5.3); Red Cell Distribution Width 16.3 % (12.1-15.1); White Blood Count 8.8 10^3/uL (4.0-10.0)
[2022-10-06 11:06] LABS: Ferritin 43 ng/mL (15-150); Iron 30 ug/dL (37-145); Percent Saturation 10.7 % (20-50); Total Iron Binding Capacity 279 mcg/dl; Unsaturated Iron Binding 249 ug/dL (112-347)
== END 2022-10-25 23:59 | disposition home or self-care (01) ==
PROVIDERS: PCP Family Medicine; Visit Provider Internal Medicine Hematology & Oncology
DX: D50.9 Iron deficiency anemia, unspecified (principal); Z86.010 Personal history of colon polyps; R10.13 Epigastric pain
CPT/HCPCS: 36415; 82728; 83540; 83550; 85025; 99214

== ENCOUNTER 2022-12-01 15:20 | Emergency (ER) | payer MEDICARE, OTHER, SELFPAY ==
--- NOTE | 2022-12-01 15:24 | CTR_ITS ---
PROCEDURE INFORMATION: Exam: CT Head Without Contrast Exam date and time: 12/01/2022 4:04 PM Age: 62 years old Clinical indication: Altered mental status/memory loss TECHNIQUE: Imaging protocol: Computed tomography of the head without contrast. Radiation optimization: All CT scans at this facility use at least one of these dose optimization techniques: automated exposure control; mA and/or kV adjustment per patient size (includes targeted exams where dose is matched to clinical indication); or iterative reconstruction. REPORTING DATA: Count of CT and Cardiac NM exams in prior 12 months: This patient has received 0 known CTs and 0 known cardiac nuclear medicine studies in the 12 months prior to the current study. COMPARISON: No relevant prior studies available. 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 Cerebral ventricles: See above. Paranasal sinuses: Visualized sinuses are unremarkable. No fluid levels. Mastoid air cells: Visualized mastoid air cells are well aerated. Bones/joints: Unremarkable. No acute fracture. Soft tissues: Unremarkable. 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
[2022-12-01 15:25] VITALS: BP 144/91; PULSE 92; RESP 18; TEMP 36.6; O2SAT 98
--- NOTE | 2022-12-01 15:25 | XR_ITS ---
WS: [id number] XR chest 1V portable [id number] REASON FOR EXAM: dyspnea/cough FINDINGS: Moderate tortuosity the thoracic aorta. Normal heart size. Large retrocardiac mediastinal mass containing gas. Previous CT scan of 09/23/2021 demonstrates nearly the complete stomach within the mediastinum, paraesophageal hernia. Calcified granulomatous disease in both hemithoraces. No acute/subacute pulmonary parenchymal or pleural abnormality. Mild degenerative spondylosis in the mid and lower thoracic spine. XR/XR chest 1V portable [id number] IMPRESSION: Large paraesophageal hernia. No acute chest abnormality.
[2022-12-01 15:52] LABS: Basophils % 0.4 %; Eosinophils # 0.3 10^3/uL (0.0-0.8); Eosinophils % 3.6 %; Hematocrit 47.7 % (37.0-47.0); Lymphocytes # 2.5 10^3/uL (0.8-4.8); Lymphocytes % 26.8 %; Mean Corpuscular HGB Conc 31.4 g/dL (30.0-36.0); Mean Platelet Volume 9.7 fL (7.4-10.4); Monocytes # 0.6 10^3/uL (0.2-0.9); Monocytes % 5.8 %; Neutrophils # 5.96 10^3/uL (1.8-7.7); Nucleated Red Blood Cells % 0 %; Platelet Count 337 10^3/cmm (130-400); Red Blood Count 5.36 10^6/uL (4.1-5.3); Red Cell Distribution Width 15.3 % (12.1-15.1); White Blood Count 9.5 10^3/uL (4.0-10.0)
[2022-12-01 15:57] VITALS: BP 144/111; PULSE 84; RESP 18; O2SAT 97
--- NOTE | 2022-12-01 15:57 | ED_ITS ---
HPI - Neuro Symptoms/Deficit General: Chief Complaint: Neuro Symptoms/Deficit Stated Complaint: AMS/SEEING DOUBLE Time Seen by Provider: 12/01/22 15:24 Source: patient Mode of arrival: ambulatory History of Present Illness: 62-year-old female who presents to the emergency room complaining of headaches and double vision strangling on for the last several months initially began with headaches and then in the last 2 weeks has had double vision has a difficulty with balance memory. She has had multiple falls. She denies striking her head no loss consciousness she is not on any anticoagulants. She denies any chest pain no difficulty speech or swallowing. Onset (ago): month(s) Severity: moderate Quality: weak Relieving factors: none Exacerbating factors: none Context: gradual onset and recent fall Associated symptoms: Reports headache(s) and malaise; Deny chest pain, cough, diaphoresis, fevers/chills, anorexia, nausea, seizures, short of breath, syncope, tingling, vertigo, vomiting or weakness Treatments Prior to Arrival: none Review of Systems Const: Reports: fatigue and malaise; Denies: fever(s), chills or diaphoresis ENMT: Denies: throat pain, ear or mastoid pain, nasal discharge or nasal congestion Card: Denies: chest pain or syncope Resp: Denies: dyspnea, productive cough or non-productive cough GI: Denies: nausea or vomiting : Denies: flank pain, difficulty voiding, dysuria, urinary frequency or urinary urgency Skin/Breast: Denies: rash or pruritus Neuro: Reports: headache(s), weakness in extremities, lack of coordination, difficulty walking, frequent falls, dizziness and confusion; Denies: vertigo [facility] ED PFSH: Medical History Anxiety Chronic obstructive pulmonary disease Diabetes mellitus, insulin dependent (IDDM), controlled Enrolled in chronic care management Essential hypertension GERD (gastroesophageal reflux disease) Hyperlipidemia Insomnia On high dose antipsychotic drug therapy Schizoaffective disorder, bipolar type Social History Quit status (tobacco): has quit using tobacco Year quit tobacco: 02/2021 Former quit date comment: Hx of 3 PPD x 40 Years Smoking risk assessment/counseling performed?: No Alcohol intake: never Counseling given: No Counseling given: No Lives independently: Yes Household members: family Marital status: / Current occupational status: retired and disabled Current gender identity: Female Physical Exam Const: GENERAL APPEARANCE: cooperative and comfortable ORIENTATION/CONSCIOUSNESS: Yes awake, Yes oriented to person, Yes oriented to place and Yes oriented to time HENMT: COMMON NORMALS: normocephalic, atraumatic and hearing grossly normal bilaterally HEAD & SCALP: normocephalic and atraumatic Resp: COMMON NORMALS: normal respiratory effort, No retractions, No use of accessory muscles and clear to auscultation bilaterally AUSCULTATION: clear to auscultation bilaterally Cardio: COMMON NORMALS: regular rate, regular rhythm and No murmurs present (Cardio) RATE: regular rate RHYTHM: regular rhythm GI: COMMON NORMALS: Soft to palpation and No hepatosplenomegaly present AUSCULTATION: Yes normoactive bowel sounds PALPATION: Yes Soft to palpation, No Tenderness to palpation present (GI), No Guarding due to palpation present (GI) and Yes No hepatosplenomegaly present Extremity: COMMON NORMALS: normal to inspection, capillary refill normal, no clubbing, cyanosis or edema, no calf tenderness and no pedal edema Neuro: SENSORIUM/ORIENTATION: Yes oriented to person, Yes oriented to place and Yes oriented to time Skin: COMMON NORMALS: no rashes or lesions noted GENERAL SKIN EXAM: no rashes or lesions noted Course Vital Signs: Vital signs: Vital Signs Temperature 97.8 F 12/01/22 15:25 Pulse Rate 84 12/01/22 18:28 Respiratory Rate 18 12/01/22 18:28 Blood Pressure 144/111 12/01/22 18:28 Pulse Oximetry 97 12/01/22 18:28 Oxygen Delivery Me thod 12/01/22 15:57 MDM - Neuro Symptoms/Deficit Medical Decision Making Left ventricular mass with midline shift some mild edema surrounding. Films were uploaded and I discussed with neurosurgery Dr. Orellana on-call at [facility]. He does not feel that this would need emergent care. He was going to refer it to Dr. Emma Avilez within his group who specializes in these types of lesions. He wants us to continue the patient on Decadron 4 mg 3 times daily. If she has any worsening or change symptoms return. Discussed these recommendations the patient she would prefer to go home for now and follow-up as an outpatient. We gave her the phone number and name of the surgeon that Dr. Orellana had recommended within his office. She is to return if she has any worsening problems. Medical Records I reviewed the patient's medical records. Lab Data I reviewed the patient's lab results. 12/01/22 15:42 12/01/22 15:[address] 12/01/22 15:24 IMPRESSION: Left frontoparietal temporal lobe 5.7 cm mass with associated vasogenic edema, compression of the left lateral ventricle and rightward midline shift of 6.4 mm, MRI could further characterize this. ADDENDUM: 12/01/22 9073 THIS REPORT CONTAINS FINDINGS THAT MAY BE CRITICAL TO PATIENT CARE. The findings were verbally communicated via telephone conference with JANAK LEWIS at 4:21 PM CDT on 12/01/2022. The findings were acknowledged and understood. Chest X-Ray 12/01/22 15:25 IMPRESSION: Large paraesophageal hernia. No acute chest abnormality. Laboratory Results WBC 9.5 10^3/uL (4.0-10.0) 12/01/22 15:42 RBC 5.36 10^6/uL (4.1-5.3) H 12/01/22 15:42 Hgb 15.0 g/dL (11.5-15.3) 12/01/22 15:42 Hct 47.7 % (37.0-47.0) H 12/01/22 15:42 MCV 89.0 fl (81-99) 12/01/22 15:42 MCH 28.0 pg (28.0-34.0) 12/01/22 15:42 MCHC 31.4 g/dL (30.0-36.0) 12/01/22 15:42 RDW 15.3 % (12.1-15.1) H 12/01/22 15:42 Plt Count 337 10^3/cmm (130-400) 12/01/22 15:42 MPV 9.7 fL (7.4-10.4) 12/01/22 15:42 Neut % (Auto) 63.0 % 12/01/22 15:42 Lymph % (Auto) 26.8 % 12/01/22 15:42 [place] % (Auto) 5.8 % 12/01/22 15:42 Eos % (Auto) 3.6 % 12/01/22 15:42 Baso % (Auto) 0.4 % 12/01/22 15:42 Neut # (Auto) 5.96 10^3/uL (1.8-7.7) 12/01/22 15:42 Lymph # (Auto) 2.5 10^3/uL (0.8-4.8) 12/01/22 15:42 [place] # (Auto) 0.6 10^3/uL (0.2-0.9) 12/01/22 15:42 Eos # (Auto) 0.3 10^3/uL (0.0-0.8) 12/01/22 15:42 Baso # (Auto) 0.0 10^3/uL (0.0-0.1) 12/01/22 15:42 Nucleated RBC % (auto) 0 % 12/01/22 15:42 Nucleated RBCs # 0.0 /100WBC 12/01/22 15:42 Sodium 139 mmol/L (136-145) 12/01/22 15:42 Potassium 3.5 mmol/L (3.5-5.1) 12/01/22 15:42 Chloride 99 mmol/L (98-107) 12/01/22 15:42 Carbon Dioxide 29 mmol/L (22-29) 12/01/22 15:42 Anion Gap 14.5 (5-19) 12/01/22 15:42 BUN 10 mg/dL (8-23) 12/01/22 15:42 Creatinine 0.5 mg/dL (0.5-0.9) 12/01/22 15:42 GFR Calculation 125.0 mL/min (90-130) 12/01/22 15:42 Glucose 86 mg/dL (65-115) 12/01/22 15:42 Calculated Osmolality 286 mOsm/kg (285-295) 12/01/22 15:42 Calcium 10.1 mg/dL (8.5-10.5) 12/01/22 15:42 Total Bilirubin 0.2 mg/dL (0.15-1.2) 12/01/22 15:42 AST 15 U/L (0-32) 12/01/22 15:42 ALT 14 U/L (0-33) 12/01/22 15:42 Alkaline Phosphatase 156 U/L (35-105) H 12/01/22 15:42 Total Protein 8.3 g/dL (6.6-8.7) 12/01/22 15:42 Albumin 4.3 g/dL (3.5-5.2) 12/01/22 15:42 Globulin 4.0 g/dL (1.3-4.6) 12/01/22 15:42 Urine Color Yellow (Yellow) 12/01/22 15:51 Urine Appearance Sl hazy (CLEAR) A 12/01/22 15:51 Urine pH 6 (5-7) 12/01/22 15:51 Ur Specific [place] 1.015 (1.005-1.030) 12/01/22 15:51 Urine Protein Neg (Negative) 12/01/22 15:51 Urine Glucose (UA) Norm (Normal) 12/01/22 15:51 Urine Ketones Negative (Negative) 12/01/22 15:51 Urine Blood 3+ (Negative) H 12/01/22 15:51 Urine Nitrate Negative (Negative) 12/01/22 15:51 Urine Bilirubin Neg (Negative) 12/01/22 15:51 Urine Urobilinogen Norm mg/dL (Negative) 12/01/22 15:51 Ur Leukocyte Esterase Negative (Negative) 12/01/22 15:51 Urine RBC 0-4 /hpf (0-2) H 12/01/22 15:51 Urine WBC 0-4 /hpf (0-5) H 12/01/22 15:51 Ur Squamous Epith Cells 0-4 /hpf (0-5) H 12/01/22 15:51 Amorphous Sediment Not Reportable 12/01/22 15:51 Urine Bacteria Trace /hpf (NONE) 12/01/22 15:51 Discharge Plan Discharge Patient Disposition: Home Clinical Impression: Brain mass Condition: Stable Prescriptions: New dexamethasone 4 mg tablet 4 mg PO Q8H Qty: 60 0RF No Action rizatriptan 5 mg tablet 5 mg PO DAILY PRN (Reason: migraine headache) (DME) blood-glucose meter [Blood Glucose Monitoring] Kit See Rx Instructions .ROUTE .MEDSUPPLY Qty: 1 0RF Rx Instructions: As directed (DME) True Metrix Level 1 Solution See Rx Instructions .Route Qty: 1 0RF Rx Instructions: As directed alcohol swabs [DropSafe Alcohol Prep Pads] Pads, Medicated See Rx Instructions .ROUTE .COMPLEX Qty: 200 0RF Dose Instruction: USE DIRECTED TWICE DAILY Rx Instructions: USE DIRECTED TWICE DAILY (DME) True Metrix Glucose Test Strip Strip See Rx Instructions .ROUTE .COMPLEX Qty: 200 0RF Dose Instruction: TEST BLOOD SUGAR TWICE DAILY DIRECTED Rx Instructions: TEST BLOOD SUGAR TWICE DAILY DIRECTED (DME) lancets [TRUEplus Lancets] 33 gauge misc See Rx Instructions .ROUTE .COMPLEX Qty: 200 0RF Dose Instruction: TEST BLOOD SUGAR TWICE DAILY DIRECTED Rx Instructions: TEST BLOOD SUGAR TWICE DAILY DIRECTED cyclobenzaprine 10 mg tablet 10 mg PO BEDTIME atorvastatin 40 mg tablet 40 mg PO BEDTIME buspirone 5 mg tablet 5 mg PO BID PRN (Reason: Anxiety) oxcarbazepine 150 mg tablet 150 mg PO BEDTIME cetirizine 10 mg tablet 10 mg PO DAILY PRN (Reason: Allergy Symptoms) omeprazole 40 mg capsule,delayed release(DR/EC) 40 mg PO BEDTIME amitriptyline 10 mg tablet 30 mg PO BEDTIME digoxin 125 mcg (0.125 mg) tablet 125 mcg PO BEDTIME albuterol sulfate 90 mcg/actuation HFA aerosol inhaler 2 puff inhalation Q6H PRN (Reason: Shortness Of Breath) quetiapine 400 mg tablet 800 mg PO BEDTIME Discharge Orders: Discharge ED (Routine); Ordered 12/01/22 Ordered By: Janak Lewis Referrals: Diony Carson DO [Primary Care Provider] - Discharge Diet: Usual diet Discharge Activity: Limit activity as instructed Patient Instructions: Opioid Safety, Pain Management Activity Restrictions/Additional Instructions: You were seen today for headaches and vision changes. Your CT showed a mass with some swelling. We discussed and reviewed the films with Dr. Orellana the on-call neurosurgeon at [facility]. He recommends that you be discharged home with Decadron 4 mg 3 times daily. His office will make arrangements for you to be seen next week by Dr. Emma Avilez. The office phone number is [phone]. If you have any worsening problems return to the emergency room. Coding Level of Care Code ED [employer] for [employer] Gee
[2022-12-01 16:25] LABS: Alanine Aminotransferase 14 U/L (0-33); Albumin Level 4.3 g/dL (3.5-5.2); Alkaline Phosphatase 156 U/L (35-105); Anion Gap 14.5 (5-19); Aspartate Amino Transferase 15 U/L (0-32); Blood Urea Nitrogen 10 mg/dL (8-23); Calcium 10.1 mg/dL (8.5-10.5); Carbon Dioxide 29 mmol/L (22-29); Chloride 99 mmol/L (98-107); Glucose 86 mg/dL (65-115); Osmolality Calculated 286 mOsm/kg (285-295); Potassium 3.5 mmol/L (3.5-5.1); Sodium 139 mmol/L (136-145); Total Bilirubin 0.2 mg/dL (0.15-1.2); Total Protein 8.3 g/dL (6.6-8.7)
--- NOTE | 2022-12-01 16:41 | PC.PHAR ---
pt states she takes care of her own medications-pt states she takes amitriptyline 30mg hs ext shows last filled 11/11/22 90d/s 30mg bid-pt states she takes buspar 5mg bid prn-pt states she takes cyclobenzaprine 10mg hs ext med history shows last filled 11/16/22 20d/s for 10mg tid-pt states she takes omeprazole 40mg hs ext shows med list last filled 11/11/22 90d/s for 40mg bid-pt states she still takes oxcarbazepine 150mg hs ext med history shows last filled 06/12/22 90d/s-pt states she no longer has a trelegy inhaler-notes are made in the pharmacy comments
[2022-12-01 16:43] LABS: Add Urine Microscopic? YES; Bilirubin Urine Neg (Negative); Blood Urine 3+ (Negative); Glucose Urine UA Norm (Normal); Ketones Urine Negative (Negative); Leukocyte Esterase Urine Negative (Negative); Nitrate Urine Negative (Negative); Protein Urine Neg (Negative); Specific Gravity, Urine 1.015 (1.005-1.030); Urine Appearance SL Hazy (CLEAR); Urine Color Yellow (Yellow); Urobilinogen Urine Norm (Negative); pH Urine 6 (5-7)
[2022-12-01 16:44] LABS: Bacteria Urine TRACE /hpf; RBC Urine 0-4 /hpf (0-2); Squamous Epithelial Cell Urine 0-4 /hpf (0-5); WBC Urine 0-4 /hpf (0-5)
--- NOTE | 2022-12-01 16:48 | ECG_ITS ---
[facility] Test Date: 2022-12-01 Pat Name: Mary Hopper Department: Room: Gender: Female Paraffiner: : [id number] Requested By: Janak Redd Order Number: [id number] Papo MD: Alonzo Eugene M.D. Measurements Intervals [place] Rate: 67 P: 67 [place]: 159 QRS: 86 QRSD: 102 T: 91 QT: 362 QTc: 384 Interpretive Statements SINUS RHYTHM WITH OCCASIONAL SUPRAVENTRICULAR PREMATURE COMPLEXES MODERATE ST DEPRESSION [0.05+ mV ST DEPRESSION] Electronically Signed On 12-01-2022 16:50:28 CDT by Alonzo Eugene M.D. [id number]
[2022-12-01] MEDS: dexamethasone 10 mg/mL INJ IVP (17:24)
[2022-12-01 18:28] VITALS: BP 144/111; PULSE 84; RESP 18; O2SAT 97
== END 2022-12-01 18:30 | disposition home or self-care (01) ==
PROVIDERS: Emergency Provider Family Medicine; PCP Family Medicine
DX: G93.9 Disorder of brain, unspecified (principal); J44.9 Chronic obstructive pulmonary disease, unspecified; E11.9 Type 2 diabetes mellitus without complications; I10 Essential (primary) hypertension; E78.5 Hyperlipidemia, unspecified; Z87.891 Personal history of nicotine dependence
CPT/HCPCS: 36415; 70450; 71045; 80053; 81001; 85025; 93005; 96374; 99285; J1100